=== PATIENT | male | born 2000 | race Caucasian/White ===

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

== ENCOUNTER 2025-06-30 20:10 | Emergency (ER) | payer OTHER ==
[~2025-06-30] VITALS: Ht 185.4 cm; Wt 114.3 kg
[2025-06-30 21:31] LABS: BASO # 0.1 10*3/uL (0.0-0.1); BASO % 0.7 % (0.0-1.0); EOS # 0.2 10*3/uL (0.0-0.4); EOS % 2.0 % (1.0-4.0); MEAN CELL VOLUME 92.8 fl (80.0-94.0); MEAN CORPUSCULAR HGB 31.4 pg (27.0-31.0); MEAN PLATELET VOLUME 10.3 fl (9.6-12.3); MONO # 1.0 10*3/uL (0.1-1.0); MONO % 11.1 % (3.0-9.0); NEUT # 5.0 10*3/uL (2.3-7.9); NEUT % 56.7 % (47.0-73.0); NUCLEATED RED BLOOD CELL 0.0 % (0.0-0.0); NUCLEATED RED BLOOD CELL 0.0 10*3/uL (0.0-0.0); PLATELET COUNT AUTOMATED 276 10*3/uL (130-400); RED CELL DISTRI WIDTH 12.3 % (0-14.5)
[2025-06-30 21:31] LABS: BILIRUBIN Negative (Negative); BLOOD Negative (Negative); CLARITY Clear (Clear); COLOR Yellow (Yellow); KETONE Negative (Negative); LEUKO ESTERASE Negative (Negative); NITRITE Negative (Negative); PH 7.0 (4.5-8.0); SPECIFIC GRAVITY <= 1.005 (1.001-1.030); UROBILINOGEN 0.2 E.U./dl (0.0-1.0)
[2025-06-30 21:44] LABS: EPITHELIAL CELLS 0-2; WBC 0-2 wbc/hpf (0-5)
[2025-06-30 21:55] LABS: BUN 8 mg/dl (9-23); SGPT/ALT 21 U/L (5-49)
[2025-06-30] MEDS ORDERED: CEPHALEXIN 500 MG CAP PO ONE (23:15)
[2025-06-30] MEDS ORDERED: CEPHALEXIN500 M1 PO (23:27)
== END 2025-06-30 23:56 | disposition home or self-care (01) ==
LOC: ED 20:10
PROVIDERS: Student in an Organized Health Care Education/Training Program
DX: P38.9 Omphalitis without hemorrhage (principal); R10.9 Unspecified abdominal pain; Z88.8 Allergy status to other drugs, medicaments and biological substances; Z88.6 Allergy status to analgesic agent